=== PATIENT | female | born 1990 | race Hispanic/Latino ===

== ENCOUNTER 2020-02-23 02:07 | Emergency (ER) | payer SELFPAY ==
[2020-02-23 02:49] LABS: Bilirubin Negative (Negative); Blood, Urine Negative (Negative); Clarity Clear (Clear); Glucose, Urine (Dipstick) Normal (Negative); Ketone, Urine Negative (Negative); Leukocyte Negative Leu/uL (Negative); Nitrite Negative (Negative); Protein, Urine (Dipstick) Negative (Neg-Trace); Specific Gravity, Urine 1.021 (1.002-1.036); Urobilinogen Normal mg/dL (Less than 2)
[2020-02-23 02:51] LABS: Pregnancy Test - Urine (BHCG) Negative (Negative); Pregu Control Background? CLEAR/WHITE (CLR/WHITE); Pregu Control Bar Appear? YES (CONTROL BAR); Specific Gravity 1.021 (1.002-1.036)
[2020-02-23] MEDS ORDERED: Ondansetron ODT 4 MG TAB ONE (02:52)
[2020-02-23] MEDS ORDERED: Acetaminophen 500 MG TAB ONE (02:52)
[2020-02-23] MEDS ORDERED: Mag-Al 1200 mg/1200 mg/30 ML UDCUP ONE (03:02)
[2020-02-23] MEDS ORDERED: Lidocaine Viscous Sol 2% 15 ml UD Cup ONE (03:02)
[2020-02-23 03:19] LABS: ALT (SGPT) 10 U/L (8-55); AST (SGOT) 16 U/L (5-34); Albumin 3.7 g/dL (3.5-5.0); Alkaline Phosphatase 75 U/L (40-110); Anion Gap 10 mmol/L (10-20); BUN (Urea Nitrogen) 10 mg/dL (7.0-18.7); Bilirubin, Total 0.2 mg/dL (0.2-1.2); Calc. Creatinine Clearance 0 mL/min (70-130); Calcium 8.8 mg/dL (7.8-10.44); Carbon Dioxide 22 mmol/L (22-29); Chloride 107 mmol/L (98-107); Globulin 3.4 g/dL (2.4-3.5); Glucose 97 mg/dL (70-105); Lipase 31 U/L (8-78); Potassium 4.3 mmol/L (3.5-5.1); Protein, Total 7.1 g/dL (6.0-8.3); Sodium 135 mmol/L (136-145)
[2020-02-23 03:22] LABS: #Basophils 0.1 thou/uL (0.0-0.2); #Eosinphils 0.1 thou/uL (0.0-0.7); #Lymphocytes 2.4 thou/uL (1.20-3.40); #Monocytes 0.6 thou/uL (0.11-0.59); #Neutrophils 3.3 thou/uL (1.40-6.50); %Basophils 1.2 % (0.0-1.0); %Eosinophils 2.1 % (0.0-10.0); %Lymphocytes 36.7 % (21.0-51.0); %Monocytes 8.6 % (0.0-10.0); %Neutrophils 51.4 % (42.0-75.0); Mean Corpuscular HGB CONC 34.6 g/dL (32.0-36.0); Mean Corpuscular Hemoglobin 29.1 pg (27.0-31.0); Mean Platelet Volume 10.2 fL (7.4-10.4); Platelet Count 190 thou/uL (130-400); RBC Distribution Width 13.5 % (11.5-14.5); Red Blood Cell (RBC) Count 4.13 mill/uL (4.20-5.40); White Blood Cell (WBC) Count 6.4 thou/uL (4.8-10.8)
--- NOTE | 2020-02-23 08:26 | ULT ---
PRELIMINARY REPORT/[facility]/EMERGENCY AFTER HOURS PROCEDURE EXAM: US Abdomen Limited, Right Upper Quadrant. CLINICAL HISTORY: HX: RUQ PAIN. SEE NOTES ON LAST IMAGE. THANKS TECHNIQUE: Real-time ultrasound of the right upper quadrant with image documentation. COMPARISON: None provided. FINDINGS: LIVER: 2 hyperechoic masses seen measuring up to 5.3 x 3.4 cm. GALLBLADDER: Gallstones seen in the gallbladder neck measuring up to 1.5 x 0.7 cm. No wall thickening. No perichol ecystic fluid. Positive sonographic Santiago sign elicited. COMMON BILE DUCT: No dilation. CBD equals 4 mm. PANCREAS: Unremarkable as visualized. The distal pancreas is obscured by overlying bowel gas. RIGHT KIDNEY: Unremarkable. No hydronephrosis. IMPRESSION: Gallstones with positive sonographic Santiago sign. Cannot exclude a possible early acute cholecystiti s. 2 hyperechoic masses seen in the liver showing up to 5.3 x 3.4 cm. This may represent possible heman giomas, however triphasic CT or MRI recommended for further evaluation. ELECTRONICALLY SIGNED BY: Devika Menjivar MD Feb 23, 2020 4:03:27 AM [employer]SULT[employer] This report is intended for review by the ordering physician only, in accordance of law. If you recei ve this report in error, please call [facility] at [phone]. FINAL REPORT Final report by Dr. Scott Emergency after-hours study ULTRASOUND ABDOMEN LIMITED: (RIGHT UPPER QUADRANT) DATE: 02/23/2020 HISTORY: 29-year-old female with right upper quadrant abdominal pain FINDINGS: Agree with preliminary report by [facility]. IMPRESSION: 1) Positive for cholelithiasis: 15 x 7 mm gallstone in gallbladder neck. Distended lumen. Reportedly positive sonographic Santiago sign, questionable for acute cholecystitis. 2) Two moderately large solid hepatic masses. One of them is up to 5.6 cm. Recommend multiphase MRI o f abdomen, liver mass protocol, with and without contrast. Transcribed Date/Time: 02/23/2020 8:52 AM
== END 2020-02-23 04:27 | disposition home or self-care (01) ==
LOC: ERS 02:07
DX: K80.70 Calculus of gallbladder and bile duct without cholecystitis without obstruction (principal); R16.0 Hepatomegaly, not elsewhere classified; Z87.891 Personal history of nicotine dependence
CPT/HCPCS: 36415; 76705; 80053; 81003; 81025; 83690; 85025; Q0162